=== PATIENT | male | born 1980 | race Caucasian/White ===

== ENCOUNTER 2024-01-27 17:16 | Emergency (ER) | payer OTHER ==
[~2024-01-27] VITALS: Ht 177.8 cm; Wt 90.7 kg
[2024-01-27] MEDS ORDERED: HYDROCODONE/APAP 5-325MG TABLET ONE (17:45)
[2024-01-27] MEDS: HYDROCODONE/APAP 5-325MG TABLET PO ONE (17:46)
[2024-01-27] MEDS ORDERED: LIDO30AD10 TP (19:50)
[2024-01-27] MEDS ORDERED: HYDR-4209 PO (19:50)
[2024-01-27] MEDS ORDERED: IBUP-1955 PO (19:50)
[2024-01-27 20:01] VITALS: BP 135/74; TEMP 98; O2SAT 99
== END 2024-01-27 20:02 | disposition home or self-care (01) ==
LOC: ER 17:27
DX: S49.81XA Other specified injuries of right shoulder and upper arm, initial encounter (principal); R22.31 Localized swelling, mass and lump, right upper limb; V89.2XXA Person injured in unspecified motor-vehicle accident, traffic, initial encounter; Y93.89 Activity, other specified; Y92.89 Other specified places as the place of occurrence of the external cause; Y99.8 Other external cause status
CPT/HCPCS: 73080; A4606; A4663